=== PATIENT | male | born 1980 | race Two or more races ===

== ENCOUNTER 2021-05-26 23:22 | Emergency (ER) | payer OTHER ==
[2021-05-27 00:12] LABS: HEMOGLOBIN 13.7 gm/dl (14.0-17.5); RED BLOOD COUNT 4.69 M/UL (4.20-5.50); WHITE BLOOD COUNT 9.7 K/UL (4.5-11.0)
[2021-05-27 00:31] LABS: BUN/CREATININE RATIO 7 (0-10)
[2021-05-27] MEDS ORDERED: KEPPRA500 MG PO (02:58)
== END 2021-05-27 00:33 | disposition home or self-care (01) ==
LOC: EDBD 23:22 → ER1 23:22
PROVIDERS: Family Medicine
DX: R56.9 Unspecified convulsions (principal); J45.909 Unspecified asthma, uncomplicated; E11.9 Type 2 diabetes mellitus without complications
CPT/HCPCS: 70450; 80053; 80307; 85025; 96374; 99285; G0480